=== PATIENT | female | born 1970 | race Caucasian/White ===

== ENCOUNTER → 2023-12-01 14:48 | Outpatient (REF) | payer OTHER, SELFPAY | LOC: HWRAD 14:48 | PROVIDERS: ATTENDING PHYSICIAN Internal Medicine Hematology & Oncology; FAMILY PHYSICIAN Family Medicine | DX: D50.9 Iron deficiency anemia, unspecified (principal); R59.0 Localized enlarged lymph nodes | CPT/HCPCS: 70491; 71260; Q9967 ==

== ENCOUNTER → 2024-03-03 10:15 | Outpatient (REF) | payer OTHER, SELFPAY | LOC: HWRAD 10:15 | PROVIDERS: FAMILY PHYSICIAN Family Medicine | DX: M54.16 Radiculopathy, lumbar region (principal); M54.50 Low back pain, unspecified; M54.12 Radiculopathy, cervical region; M54.2 Cervicalgia; R51.9 Headache, unspecified | CPT/HCPCS: 72052; 72114; 72170 ==

== ENCOUNTER → 2025-05-02 15:39 | Outpatient (REF) | payer OTHER, SELFPAY | LOC: HWRAD 15:39 | PROVIDERS: ATTENDING PHYSICIAN Chiropractor; FAMILY PHYSICIAN Family Medicine | DX: S13.4XXA Sprain of ligaments of cervical spine, initial encounter (principal); M54.12 Radiculopathy, cervical region; G44.86 Cervicogenic headache; S23.3XXA Sprain of ligaments of thoracic spine, initial encounter; S23.41XA Sprain of ribs, initial encounter; M54.6 Pain in thoracic spine; S33.5XXA Sprain of ligaments of lumbar spine, initial encounter; M54.00 Panniculitis affecting regions of neck and back, site unspecified; M54.16 Radiculopathy, lumbar region; M99.04 Segmental and somatic dysfunction of sacral region; M99.05 Segmental and somatic dysfunction of pelvic region; M25.60 Stiffness of unspecified joint, not elsewhere classified; M62.838 Other muscle spasm; M25.312 Other instability, left shoulder; M25.311 Other instability, right shoulder | CPT/HCPCS: 72052; 72072; 72110; 72170 ==